=== PATIENT | male | born 1980 | race Caucasian/White ===

== ENCOUNTER 2019-04-30 18:05 | Emergency (ER) | payer SELFPAY ==
--- NOTE | 2019-04-30 19:03 | ER ---
Nurse's Notes [facility] Name: Chidi Ward II Age: 39 yrs Sex: Male : 1980 Arrival Date: 04/30/2019 Time: 18:10 Bed 28 Private MD: Diagnosis: Pain in right knee;Unspecified internal derangement of right knee Presentation: 04/30 18:15 Presenting complaint: Patient states: R knee pain and swelling started today this time. ca1 It comes and go. The last attack was over a year ago. back home, they usually just give me a shot and within an hour the pain goes away. Transition of care: patient was not received from another setting of care. Onset of symptoms was April 30, 2019. Risk Assessment: Do you want to hurt yourself or someone else? Patient reports no desire to harm self or others. Initial Sepsis Screen: Does the patient meet any 2 criteria? No. Patient's initial sepsis screen is negative. Does the patient have a suspected source of infection? No. Patient's initial sepsis screen is negative. Care prior to arrival: None. 18:15 Method Of Arrival: Ambulatory ca1 18:15 Acuity: CHRISTEN 4 ca1 Triage Assessment: 18:43 General: Appears in no apparent distress. Behavior is calm, cooperative. ls4 Historical: - Allergies: 18:17 No Known Allergies; ca1 - Home Meds: 18:17 None [Active]; ca1 - PMHx: 18:17 None; ca1 - PSHx: 18:17 Knee Surgery R; ca1 - Immunization history:: Adult Immunizations up to date, Flu vaccine is not up to date. - Coronavirus screen:: The patient has NOT traveled to [place] in the past 14 days. The patient has NOT had contact with known/suspected case of Coronavirus?. - Social history:: Smoking status: Patient denies any tobacco usage or history of. - Ebola Screening: : Patient negative for fever greater than or equal to 101.5 degrees Fahrenheit, and additional compatible Ebola Virus Disease symptoms Patient denies exposure to infectious person Patient denies travel to an Ebola-affected area in the 21 days before illness onset No symptoms or risks identified at this time. Screenin:43 Abuse screen: Denies threats or abuse. Denies injuries from another. Nutritional ls4 screening: No deficits noted. Tuberculosis screening: No symptoms or risk factors identified. Fall Risk None identified. Assessment: 18:10 General: Appears in no apparent distress. uncomfortable. ls4 18:10 Pain: Complains of pain in right knee Pain currently is 8 out of 10 on a pain scale. ls4 Neuro: No deficits noted. Cardiovascular: No deficits noted. Respiratory: No deficits noted. GI: No deficits noted. : No deficits noted. Derm: No deficits noted. Musculoskeletal: No deficits noted. Vital Signs: 18:17 BP 144 / 104; Pulse 98; Resp 16 S; Temp 97.8(TE); Pulse Ox 97% on R/A; Weight 113.4 kg ca1 (R); Height 6 ft. 2 in. (187.96 cm) (R); 18:17 Body Mass Index 32.10 (113.40 kg, 187.96 cm) ca1 ED Course: 18:10 Patient arrived in ED. rg4 18:10 No provider procedures requiring assistance completed. Patient did not have IV access ls4 during this emergency room visit. 18:15 Chrissie Salinas [facility]C [facility]. snw 18:15 Ryne Alba MD is Attending Physician. snw 18:16 Triage completed. ca1 18:17 Arm band placed on right wrist. ca1 18:42 Soumya Hawthorne, JORGITO is Primary Nurse. ls4 18:43 Patient has correct armband on for positive identification. Bed in low position. Call ls4 light in reach. Side rails up X 1. Verbal reassurance given. Administered Medications: 19:10 Drug: TORadol 60 mg Route: IM; Site: right gluteus; ls4 19:25 Follow up: Response: No adverse reaction ls4 Outcome: 19:02 Discharge ordered by . snw 19:27 Discharged to home ambulatory. ls4 19:27 Condition: stable 19:27 Discharge instructions given to patient, family, Instructed on discharge instructions, follow up and referral plans. medication usage, Demonstrated understanding of instructions, follow-up care, medications, Prescriptions given X 1. 19:28 Patient left the ED. ls4 Signatures: Chrissie Salinas FNP-C FNP-Laila Prather rg4 Soumya Hawthorne RN RN ls4 Enma Oseguera RN RN ca1 Corrections: (The following items were deleted from the chart) 18:19 18:15 Presenting complaint: Patient states: R knee pain and swelling started today ca1 ca1
--- NOTE | 2019-04-30 19:03 | EDPHYS ---
Physician Documentation [facility] Name: Chidi Ward II Age: 39 yrs Sex: Male : 1980 Arrival Date: 04/30/2019 Time: 18:10 Bed 28 Private MD: ED Physician Ryne Alba HPI: 05/01 00:08 This 39 yrs old Male presents to ER via Ambulatory with complaints of Knee snw Pain. 00:08 Onset: The symptoms/episode began/occurred suddenly. The patient has experienced snw similar episodes in the past, a few times, several times. The patient has not recently seen a physician. pt had right knee surgery, a couple of times after that he noted pain, decreased ROM, and swelling. Resolved each time with steroids. Historical: - Allergies: 04/30 18:17 No Known Allergies; ca1 - Home Meds: 18:17 None [Active]; ca1 - PMHx: 18:17 None; ca1 - PSHx: 18:17 Knee Surgery R; ca1 - Immunization history:: Adult Immunizations up to date, Flu vaccine is not up to date. - Coronavirus screen:: The patient has NOT traveled to [place] in the past 14 days. The patient has NOT had contact with known/suspected case of Coronavirus?. - Social history:: Smoking status: Patient denies any tobacco usage or history of. - Ebola Screening: : Patient negative for fever greater than or equal to 101.5 degrees Fahrenheit, and additional compatible Ebola Virus Disease symptoms Patient denies exposure to infectious person Patient denies travel to an Ebola-affected area in the 21 days before illness onset No symptoms or risks identified at this time. ROS: 05/01 00:07 Constitutional: Negative for fever, chills, and weight loss, Eyes: Negative for injury, snw pain, redness, and discharge, ENT: Negative for injury, pain, and discharge, Neck: Negative for injury, pain, and swelling, Cardiovascular: Negative for chest pain, palpitations, and edema, Respiratory: Negative for shortness of breath, cough, wheezing, and pleuritic chest pain, Abdomen/GI: Negative for abdominal pain, nausea, vomiting, diarrhea, and constipation, Back: Negative for injury and pain, : Negative for injury, bleeding, discharge, and swelling, Skin: Negative for injury, rash, and discoloration, Neuro: Negative for headache, weakness, numbness, tingling, and seizure, Psych: Negative for depression, anxiety, suicide ideation, homicidal ideation, and hallucinations. MS/extremity: Positive for decreased range of motion, pain, of the right knee. Exam: 00:07 Constitutional: This is a well developed, well nourished patient who is awake, alert, snw and in no acute distress. Head/Face: Normocephalic, atraumatic. Eyes: Pupils equal round and reactive to light, extra-ocular motions intact. Lids and lashes normal. Conjunctiva and sclera are non-icteric and not injected. Cornea within normal limits. Periorbital areas with no swelling, redness, or edema. ENT: Nares patent. No nasal discharge, no septal abnormalities noted. Tympanic membranes are normal and external auditory canals are clear. Oropharynx with no redness, swelling, or masses, exudates, or evidence of obstruction, uvula midline. Mucous membranes moist. Neck: Trachea midline, no thyromegaly or masses palpated, and no cervical lymphadenopathy. Supple, full range of motion without nuchal rigidity, or vertebral point tenderness. No Meningismus. Chest/axilla: Normal chest wall appearance and motion. Nontender with no deformity. No lesions are appreciated. Cardiovascular: Regular rate and rhythm with a normal S1 and S2. No gallops, murmurs, or rubs. Normal PMI, no JVD. No pulse deficits. Respiratory: Lungs have equal breath sounds bilaterally, clear to auscultation and percussion. No rales, rhonchi or wheezes noted. No increased work of breathing, no retractions or nasal flaring. Abdomen/GI: Soft, non-tender, with normal bowel sounds. No distension or tympany. No guarding or rebound. No evidence of tenderness throughout. Back: No spinal tenderness. No costovertebral tenderness. Full range of motion. Skin: Warm, dry with normal turgor. Normal color with no rashes, no lesions, and no evidence of cellulitis. Neuro: Awake and alert, GCS 15, oriented to person, place, time, and situation. Cranial nerves II-XII grossly intact. Motor strength 5/5 in all extremities. Sensory grossly intact. Cerebellar exam normal. Normal gait. Psych: Awake, alert, with orientation to person, place and time. Behavior, mood, and affect are within normal limits. 00:07 Musculoskeletal/extremity: Extremities: grossly normal except: noted in the right knee: swelling, tenderness. Vital Signs: 04/30 18:17 BP 144 / 104; Pulse 98; Resp 16 S; Temp 97.8(TE); Pulse Ox 97% on R/A; Weight 113.4 kg ca1 (R); Height 6 ft. 2 in. (187.96 cm) (R); 18:17 Body Mass Index 32.10 (113.40 kg, 187.96 cm) ca1 MDM: 18:56 Patient medically screened. snw 19:03 Data reviewed: vital signs, nurses notes. Counseling: I had a detailed discussion with snw the patient and/or guardian regarding: the historical points, exam findings, and any diagnostic results supporting the discharge/admit diagnosis, the presence of at least one elevated blood pressure reading (>120/80) during this emergency department visit, the need for outpatient follow up, to return to the emergency department if symptoms worsen or persist or if there are any questions or concerns that arise at home. Special discussion: I have referred the patient to see his PCP for further evaluation of high blood pressure. Based on the history and exam findings, there is no indication for further emergent testing or inpatient evaluation. I discussed with the patient/guardian the need to see the orthopedic surgeon for further evaluation of the symptoms. I discussed with the patient/guardian the need to see the primary care provider for further evaluation of the symptoms. Administered Medications: 19:10 Drug: TORadol 60 mg Route: IM; Site: right gluteus; ls4 19:25 Follow up: Response: No adverse reaction ls4 Disposition: 05/01 07:04 Co-signature as Attending Physician, Ryne Alba MD. rn Disposition: 04/30/19 19:02 Discharged to Home. Impression: Pain in right knee, Unspecified internal derangement of right knee. - Condition is Stable. - Discharge Instructions: Joint Pain, Hypertension, How to Use a Knee Brace, Musculoskeletal Pain, RICE for Routine Care of Injuries, Knee Pain, Form - Blood Pressure Record Sheet. - Prescriptions for Diclofenac Sodium 75 mg Oral Tablet Sustained Release - take 1 tablet by ORAL route 2 times per day; 30 tablet. - Medication Reconciliation Form, Thank You Letter, Antibiotic Education, Prescription Opioid Use form. - Follow up: Emergency Department; When: As needed; Reason: Worsening of condition. Follow up: Private Physician; When: 1 week; Reason: Recheck today's complaints, Continuance of care, Re-evaluation by your physician. Signatures: Chrissie Salinas, TOUR LEADER-C TOUR LEADER-Csnw Ryne Alba MD MD rn Stewart, Lisa, RN RN ls4 Enma Oseguera RN RN ca1 Corrections: (The following items were deleted from the chart) 04/30 19:28 19:02 04/30/2019 19:02 Discharged to Home. Impression: Pain in right knee; Unspecified ls4 internal derangement of right knee. Condition is Stable. Forms are Medication Reconciliation Form, Thank You Letter, Antibiotic Education, Prescription Opioid Use. Follow up: Emergency Department; When: As needed; Reason: Worsening of condition. Follow up: Private Physician; When: 1 week; Reason: Recheck today's complaints, Continuance of care, Re-evaluation by your physician. snw
[2019-04-30] MEDS ORDERED: KETOROLAC 30 MG/ML INJ ONE (19:13)
== END 2019-04-30 19:28 | disposition home or self-care (01) ==
LOC: ER 18:05
DX: M23.91 Unspecified internal derangement of right knee (principal)
CPT/HCPCS: 96372; 99283